=== PATIENT | male | born 1950 | race Hispanic/Latino ===

== ENCOUNTER → 2024-09-15 | Day surgery (SDC) | payer BC, MEDICARE ==
[2024-09-10 15:35] LABS: BASOPHILS % 0.6 % (0.0-1.0); EOSINOPHILS % 0.9 % (0.0-6.0); LYMPHOCYTES % 31.1 % (18.0-39.1); MONOCYTES % 7.6 % (4.4-11.3); NEUTROPHILS % 59.6 % (38.7-80.0); RED CELL DISTRIBUTION WIDTH 13.9 % (11.7-14.4)
[~2024-09-15] MED LIST: ACTOS15 MG PO; FENTANYL CITRATE/PF 100MCG/2 ML INJ ONE; HYDROXYZINE HCL50 MG PO; LIDOCAINE HCL 2% LOCAL INJ 5 ML SDV VIAL INJ ONE; METFORMIN HCL500 M1 PO; MIRTAZAPINE15 MG PO; OMEPRAZOLE40 MG PO; ONDANSETRON HCL INJ 2MG/ML 2ML 2 MG/ML VIAL ONE; PRAMIPEXOLE DIHY1 MG PO; PRAVASTATIN SOD20 MG PO; PROPOFOL IV EMULSION 50 ML IV ONE
[2024-09-15] MEDS: LACTATED RINGER'S 1,000 ML ONE (11:46)
[2024-09-15 12:42] VITALS: BP 137/76; PULSE 58; RESP 18; O2SAT 98
== END | disposition home or self-care (01) ==
LOC: OR 08:35
PROVIDERS: ATTEND Internal Medicine Gastroenterology
DX: K31.A14 Gastric intestinal metaplasia without dysplasia, involving the cardia (principal); K31.A11 Gastric intestinal metaplasia without dysplasia, involving the antrum; K22.70 Barrett's esophagus without dysplasia; K29.70 Gastritis, unspecified, without bleeding; K44.9 Diaphragmatic hernia without obstruction or gangrene; K31.89 Other diseases of stomach and duodenum; K91.89 Other postprocedural complications and disorders of digestive system; E11.9 Type 2 diabetes mellitus without complications; Z79.899 Other long term (current) drug therapy; Z79.84 Long term (current) use of oral hypoglycemic drugs; Z01.810 Encounter for preprocedural cardiovascular examination; Z01.812 Encounter for preprocedural laboratory examination
CPT/HCPCS: 36415 ×2; 43239; 82948; 85025; 93005; J2003; J2405; J2704; J3010; J7121